=== PATIENT | female | born 1995 | race American Indian/Alaskan Native ===

== ENCOUNTER 2020-07-26 01:28 | Emergency (ER) | payer BC ==
--- NOTE | 2020-07-26 02:53 | XRay Report ---
CHEST 2 VIEWS INDICATION / CLINICAL INFORMATION: Difficulty breathing, chest pain. COMPARISON: None available. FINDINGS: SUPPORT DEVICES: None. HEART / MEDIASTINUM: No significant abnormality. LUNGS / PLEURA: Clear lungs. No significant pleural effusion. No pneumothorax. ADDITIONAL FINDINGS: No significant additional findings. IMPRESSION: 1. No acute abnormality of the chest. Signer Name: Rolando Lilly MD Signed: 07/26/2020 2:49 AM Workstation Name: [id number]
[2020-07-26 03:55] VITALS: BP 104/61
--- NOTE | 2020-07-26 04:10 | Emergency Department Report ---
ED General Adult HPI - General Chief complaint: Chest Pain Stated complaint: CHEST PAIN PUI?: No Time Seen by Provider: 07/26/20 04:04 Source: patient Mode of arrival: Ambulatory Limitations: No Limitations - History of Present Illness Initial comments: Patient is a 24-year-old female who presents emergency room with complaints of chest pain, difficulty breathing. Patient states that her symptoms been going on for 4 days. Patient states that worsening. Patient states her chest pain is worse with cough and better with rest. Patient states her shortness of breath is better with rest and worse with exertion. Patient states she has a history of asthma. Patient states she has a lot of seasonal allergies at this time her seasonal allergies flares up yearly. Patient states she has been having to use her inhaler more. Patient denies fever or chills. Patient states her cough is dry. Patient states that her chest pain has resolved since being here. Patient states that her shortness of breath is improving. Patient denies recent travel. Patient denies recent international travel. Patient denies exposure to the novel coronavirus. Patient denies sick contacts. Patient denies fever and chills. Patient denies loss of smell. Patient denies diarrhea. Patient denies coming in contact with anybody with symptoms of the novel coronavirus. -: Sudden Severity scale (0 -10): 0 - Related Data Previous Rx's Medication Instructions Recorded Last Taken Type methylPREDNISolone [Medrol 4MG 4 mg PO DAILY 6 Days #1 tab.ds.pk 07/26/20 Unknown Rx DOSEPAK (21 tabs)] Allergies Allergy/AdvReac Type Severity Reaction Status Date / Time aspirin Allergy Swelling Verified 07/26/20 02:21 Sulfa (Sulfonamide Allergy Swelling Verified 07/26/20 02:21 Antibiotics) ED Review of Systems ROS: Stated complaint: CHEST PAIN Other details as noted in HPI Constitutional: denies: chills, fever Eyes: denies: eye pain, eye discharge, vision change ENT: denies: ear pain, throat pain Respiratory: see HPI, cough, shortness of breath. denies: wheezing Cardiovascular: as per HPI, chest pain. denies: palpitations Endocrine: no symptoms reported Gastrointestinal: denies: abdominal pain, nausea, diarrhea Genitourinary: denies: urgency, dysuria, discharge Musculoskeletal: denies: back pain, joint swelling, arthralgia Skin: denies: rash, lesions Neurological: denies: headache, weakness, paresthesias Psychiatric: denies: anxiety, depression Hematological/Lymphatic: denies: easy bleeding, easy bruising ED Past Medical Hx - Past Medical History Previous Medical History?: Yes Hx Asthma: Yes Additional medical history: Heart murmur - Surgical History Past Surgical History?: No - Family History Family history: no significant - Social History Smoking Status: Current Every Day Smoker Substance Use Type: Alcohol, Marijuana - Medications Home Medications: Home Medications Medication Instructions Recorded Confirmed Last Taken Type methylPREDNISolone [Medrol 4MG 4 mg PO DAILY 6 Days #1 tab.ds.pk 07/26/20 Unknown Rx DOSEPAK (21 tabs)] ED Physical Exam - General Limitations: No Limitations General appearance: alert, in no apparent distress - Head Head exam: Present: atraumatic, normocephalic - Eye Eye exam: Present: normal appearance - ENT ENT exam: Present: mucous membranes moist - Neck Neck exam: Present: normal inspection - Respiratory Respiratory exam: Present: normal lung sounds bilaterally. Absent: respiratory distress, wheezes, rales, rhonchi - Cardiovascular Cardiovascular Exam: Present: regular rate, normal rhythm. Absent: systolic murmur, diastolic murmur, rubs, gallop - GI/Abdominal GI/Abdominal exam: Present: soft, normal bowel sounds. Absent: distended, tenderness, guarding - Rectal Rectal exam: Present: deferred - Extremities Exam Extremities exam: Present: normal inspection - Back Exam Back exam: Present: normal inspection - Neurological Exam Neurological exam: Present: alert, oriented X3 - Psychiatric Psychiatric exam: Present: normal affect, normal mood - Skin Skin exam: Present: warm, dry, intact, normal color. Absent: rash ED Course Vital Signs 07/26/20 07/26/20 02:15 03:54 Temperature 98.1 F Pulse Rate 67 70 Respiratory 18 18 Rate Blood Pressure 108/62 Blood Pressure 104/61 [Left] O2 Sat by Pulse 100 100 Oximetry - Reevaluation(s) Reevaluation #1: I discussed all results and clinical findings with patient. I discussed plan of care with patient. Patient agrees with plan of care. Patient is stable for discharge. Patient will be discharged home. Patient given discharge instructions. Patient voiced understanding of discharge instructions. 07/26/20 04:12 ED Medical Decision Making - EKG Data -: EKG Interpreted by Me EKG shows normal: sinus rhythm, axis, intervals, QRS complexes, ST-T waves Rate: normal - Radiology Data Radiology results: report reviewed, image reviewed interpreted by me: Chest x-ray: No pneumonia, no pneumothorax, no foreign body, no osseous findings, no acute findings CHEST 2 VIEWS INDICATION / CLINICAL INFORMATION: Difficulty breathing, chest pain. COMPARISON: None available. FINDINGS: SUPPORT DEVICES: None. HEART / MEDIASTINUM: No significant abnormality. LUNGS / PLEURA: Clear lungs. No significant pleural effusion. No pneumothorax. ADDITIONAL FINDINGS: No significant additional findings. IMPRESSION: 1. No acute abnormality of the chest. . - Medical Decision Making Patient is a 24-year-old female who presents emergency room with chest pain shortness of breath. Patient's chest pain and shortness of breath secondary to worsening asthma. Allergy induced asthma. Patient has seasonal allergies and flareup at this time of the year. Patient exam is benign and negative. Patient's exams are clear. Patient's symptoms essentially resolved prior to initial evaluation. Patient is not any acute distress. Patient not require any further emergency medical services. Patient had a chest x-ray which was negative for acute finding. Patient had an EKG which was negative for acute he had normal ST and showed a sinus rhythm. I personally reviewed the EKG and the chest x-ray. Patient stable for discharge. Patient be discharged home. Patient given discharge directions. Patient will be discharged home with a Medrol Dosepak for a asthma exacerbation. - Differential Diagnosis Chest pain, shortness of breath, asthma exacerbation, allergies Critical care attestation.: If time is entered above; I have spent that time in minutes in the direct care of this critically ill patient, excluding procedure time. ED Disposition Clinical Impression: Shortness of breath, Cough Asthma exacerbation Qualifiers: Asthma severity: unspecified severity Asthma persistence: unspecified Qualified Code(s): J45.901 - Unspecified asthma with (acute) exacerbation Chest pain Qualifiers: Chest pain type: unspecified Qualified Code(s): R07.9 - Chest pain, unspecified Disposition: DC-01 TO HOME OR SELFCARE Is pt being admited?: No Does the pt Need Aspirin: No Condition: Stable Instructions: Cough, Adult, [id number], Preventing Asthma Attacks From Outdoor Allergens, Teen, Nonspecific Chest Pain, Adult, Shortness of Breath, Adult, Asthma Attack Additional Instructions: Patient to follow-up with primary care in 2 to 3 days. Patient to follow-up with apple peeler operator in 2 to 3 days. Patient to rest. Patient to increase water. Patient to avoid strenuous exercise or heavy lifting until cleared by ENGINEERING SPECIALIST. Patient to take Tylenol or ibuprofen as needed for pain. Patient to take meds as directed. Patient to return to the ER if condition worsens, changes or new symptoms arise. Prescriptions: methylPREDNISolone [Medrol 4MG DOSEPAK (21 tabs)] 4 mg PO DAILY 6 Days #1 tab.ds.pk Referrals: PRIMARY CARE, [Primary Care Provider] - 2-3 Days Time of Disposition: 04:12
--- NOTE | 2020-07-29 17:37 | Electrocardiograph Report ---
[facility] Test Date: 2020-07-26 Test Time: 02:20:31 Pat Name: [facility] Department: Room: Gender: F Hand Stripper: JOSE : 1995 Requested By: JAQUAN MARROQUIN III Order Number: [id number] Reading MD: Maryam Zheng Measurements Intervals [place] Rate: 68 P: 79 NV: 415 QRS: 15 QRSD: 80 T: 1 QT: 421 QTc: 449 Interpretive Statements Sinus rhythm Marked first-degree AV block Consider the presence of Mobitz 1, Wenckebach AV block No previous ECG available for comparison Electronically Signed On 07-29-2020 17:37:32 EDT by Maryam Zheng
== END 2020-07-26 04:47 | disposition home or self-care (01) ==
LOC: ED 01:28
DX: J45.901 Unspecified asthma with (acute) exacerbation (principal); R07.89 Other chest pain; R06.00 Dyspnea, unspecified; R05 Cough; F17.200 Nicotine dependence, unspecified, uncomplicated; F12.10 Cannabis abuse, uncomplicated; Z79.899 Other long term (current) drug therapy; Z88.6 Allergy status to analgesic agent; Z88.2 Allergy status to sulfonamides
CPT/HCPCS: 71046; 93005